=== PATIENT | male | born 1980 | race Caucasian/White ===

== ENCOUNTER 2017-03-11 15:07 | Emergency (ER) | payer OTHER ==
[2017-03-11 15:13] VITALS: BP 145/98; PULSE 79; TEMP 98.4; BMI 28.1
--- NOTE | 2017-03-11 15:43 | PDOC ---
History of Present Illness - General Chief Complaint: Injury Stated Complaint: LT TIGHT/KNEE PAIN Time Seen by Provider: 03/11/17 15:27 History Source: Patient Exam Limitations: No Limitations - History of Present Illness Initial Comments: 03/11/17 15:37 [employer], while at work, was lifting a chair by handle mechanism when he pushed with both feet on the ground causing an acute strain/sprain/tearing feeling to his left inner quadricep muscle. Has stabbing type pain to that muscle belly, with no numbness or tingling distal to that injury. 03/11/17 15:44 Occurred: reports: just prior to arrival Severity: reports: mild, moderate Pain Location: reports: lower extremity (leg / thigh) Method of Injury: Yes: other Modifying Factors: improves with: None Loss of Consciousness: no loss of consciousness Past History - Travel Traveled outside of the country in the last 30 days: No Close contact w/someone who was outside of country & ill: No - Past Medical History Allergies/Adverse Reactions: Allergies Allergy/AdvReac Type Severity Reaction Status Date / Time No Known Allergies Allergy Verified 03/11/17 15:09 Home Medications: Ambulatory Orders Citalopram Hydrobromide [Citalopram HBr] 20 mg PO DAILY 05/15/15 Esomeprazole Magnesium [Nexium 24Hr] 22.3 mg PO DAILY 06/25/16 Anemia: No Asthma: No Cancer: No Cardiac Disorders: No CVA: No COPD: No CHF: No Dementia: No Diabetes: No GI Disorders: Yes (REFLUX) Disorders: No HTN: Yes (SLIGHTLY ELEVATED- NO MEDS) Hypercholesterolemia: No Liver Disease: No Psychiatric Problems: Yes (ANXIETY.) Seizures: No Thyroid Disease: No - Surgical History Abdominal Surgery: No Appendectomy: No Cardiac Surgery: No Cholecystectomy: No Lung Surgery: No Neurologic Surgery: No Orthopedic Surgery: Yes (RIGHT SHOULDER ARTHROSCPY -2010) - Immunization History Immunization Up to Date: Yes - Psycho/Social/Smoking Cessation Hx Anxiety: No Suicidal Ideation: No Smoking Status: No Smoking History: Never smoked Have you smoked in the past 12 months: No Number of Cigarettes Smoked Daily: 10 If you are a former smoker, when did you quit?: 2000 Information on smoking cessation initiated: No Hx Alcohol Use: No Drug/Substance Use Hx: No Substance Use Type: Alcohol Hx Substance Use Treatment: No Trauma Specific PMHX - Complaint Specific PMHX Back Injury: No Neck Injury: No Review of Systems - Review of Systems Able to Perform ROS?: Yes Is the patient limited Peruvian proficient: Yes Constitutional: Yes: See HPI. No: Symptoms Reported HEENTM: No: Symptoms Reported Musculoskeletal: Yes: Symptoms Reported, See HPI, Muscle Pain, Muscle Weakness ( left quads) All Other Systems: Reviewed and Negative *Physical Exam - Vital Signs Last Vital Signs Temp Pulse Resp BP Pulse Ox 98.4 F 79 18 145/98 100 03/11/17 15:10 03/11/17 15:10 03/11/17 15:10 03/11/17 15:10 03/11/17 15:10 - Physical Exam General Appearance: Yes: Appropriately Dressed, Apparent Distress HEENT: positive: BECKY, TMs Normal, Pharynx Normal Neck: positive: Supple Respiratory/Chest: positive: Lungs Clear, Normal Breath Sounds Cardiovascular: positive: Regular Rhythm Musculoskeletal: positive: Normal Inspection, Decreased Range of Motion. negative: CVA Tenderness (L), Vertebral Tenderness Extremity: positive: Normal Capillary Refill, Normal Inspection, Normal Range of Motion (pain with flexion and quadriceps contraction primarily on the medial aspect of those muscle bellies. Able to contract and quadriceps tendon intact. Able to leg raise but reproduces pain to the medial aspect of [place] at muscle. Neurovascular intact distal to injury) Integumentary: positive: Normal Color, Dry, Warm. 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 Will treat with Aleksey wrap, rest and have follow-up with orthopedist for further evaluation and possible testing. Crutches provided, patient will use ibuprofen for pain relief *DC/Admit/Observation/Transfer Diagnosis at time of Disposition: Quadriceps muscle strain Qualifiers: Encounter type: initial encounter Laterality: left Qualified Code(s): S76.112A - Strain of left quadriceps muscle, fascia and tendon, initial encounter - Discharge Dispostion Disposition: HOME Condition at time of disposition: Stable Admit: No - Referrals Referrals: Ann-Marie Ruiz MD [Primary Care Provider] - Jonas Benavidez MD [Staff Physician] - - Patient Instructions Printed Discharge Instructions: DI for Muscle Strain Additional Instructions: Rest, ice to area on and off for 15 minutes 4-6 times a day Avoid heavy lifting or exercise until pain and swelling is resolved or until further directed Keep area highly elevated to reduce swelling Use splints/Aleksey wrap as directed Followup with orthopedist in one to 2 days if not improving, if significantly improved may wait one week for followup with orthopedist May use ibuprofen 2-200 mg tablets every 6 hours as needed for pain - Post Discharge Activity Work/School Note: Back to Work
== END 2017-03-11 15:47 | disposition home or self-care (01) ==
LOC: JER 15:07
DX: S76.112A Strain of left quadriceps muscle, fascia and tendon, initial encounter (principal); X50.0XXA Overexertion from strenuous movement or load, initial encounter; X50.9XXA Other and unspecified overexertion or strenuous movements or postures, initial encounter; Y93.89 Activity, other specified; Y92.29 Other specified public building as the place of occurrence of the external cause; Y99.0 Civilian activity done for income or pay; I10 Essential (primary) hypertension
CPT/HCPCS: 99281-25

== ENCOUNTER 2018-03-17 10:06 | Emergency (ER) | payer OTHER ==
[2018-03-17 10:19] VITALS: BP 153/105; PULSE 86; TEMP 98.3; BMI 28.1
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
== END 2018-03-17 11:46 | disposition home or self-care (01) ==
LOC: JERFT 10:06
DX: S53.402A Unspecified sprain of left elbow, initial encounter (principal); Y35.891A Legal intervention involving other specified means, law enforcement official injured, initial encounter; V43.52XA Car driver injured in collision with other type car in traffic accident, initial encounter; Y92.414 Local residential or business street as the place of occurrence of the external cause; Y93.89 Activity, other specified; Y99.0 Civilian activity done for income or pay
CPT/HCPCS: 73070-TC-LT-FY; 99281-25

== ENCOUNTER 2019-03-20 14:11 | Emergency (ER) | payer OTHER | END 2019-03-20 15:37 | disposition home or self-care (01) | LOC: JERFT 14:11 ==

== ENCOUNTER 2019-08-12 09:44 | Emergency (ER) | payer OTHER ==
[2019-08-12 09:50] VITALS: BP 142/98; PULSE 65; TEMP 98.4; BMI 28.1
[2019-08-12] MEDS ORDERED: IBUPROFEN 400 MG TABLET (FP) PO ONE ×2 (10:05→10:06)
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
== END 2019-08-12 10:21 | disposition home or self-care (01) ==
LOC: JERFT 09:44
DX: S16.1XXA Strain of muscle, fascia and tendon at neck level, initial encounter (principal); S39.012A Strain of muscle, fascia and tendon of lower back, initial encounter; S60.411A Abrasion of left index finger, initial encounter; V88.8XXA Person injured in other specified noncollision transport accidents involving motor vehicle, nontraffic, initial encounter; Y35.891A Legal intervention involving other specified means, law enforcement official injured, initial encounter; Y93.89 Activity, other specified; Y92.414 Local residential or business street as the place of occurrence of the external cause; Y99.0 Civilian activity done for income or pay
CPT/HCPCS: 99281-25

== ENCOUNTER 2019-11-03 10:24 | Emergency (ER) | payer BC, OTHER ==
[2019-11-03 10:39] VITALS: BP 127/97; PULSE 85; TEMP 98; BMI 28.1
--- NOTE | 2019-11-03 11:05 | PDOC ---
History of Present Illness - General Chief Complaint: Pain, Acute Stated Complaint: LT KNEE PAIN Time Seen by Provider: 11/03/19 10:53 History Source: Patient Exam Limitations: No Limitations - History of Present Illness Initial Comments: 11/03/19 11:00 Patient is a 39-year-old male with history of slightly high blood pressure, who does not take any medications, who presents to the ED with medial knee pain for the last 3 days. He states the pain has gotten progressively worse over the last 3 days. He denies any known injury. 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 He denies any known knee injuries in the past. He denies any numbness or tingling. He has not taken anything for his pain and states he would not like to take anything at this time. Past History - Past Medical History Allergies/Adverse Reactions: Allergies Allergy/AdvReac Type Severity Reaction Status Date / Time No Known Allergies Allergy Verified 11/03/19 10:40 Home Medications: Ambulatory Orders Citalopram Hydrobromide [Citalopram HBr] 40 mg PO DAILY 05/15/15 Omeprazole 20 mg PO 11/03/19 Anemia: No Asthma: No Cancer: No Cardiac Disorders: No CVA: No COPD: No CHF: No DVT: No Dementia: No Diabetes: No GI Disorders: Yes (REFLUX) Disorders: No HTN: Yes (SLIGHTLY ELEVATED- NO MEDS) Hypercholesterolemia: No Liver Disease: No Psychiatric Problems: Yes (ANXIETY.) Seizures: No Thyroid Disease: No - Surgical History Abdominal Surgery: No Appendectomy: No Cardiac Surgery: No Cholecystectomy: No Lung Surgery: No Neurologic Surgery: No Orthopedic Surgery: Yes (RIGHT SHOULDER ARTHROSCPY -2010) - Immunization History Immunization Up to Date: Yes - Psycho Social/Smoking Cessation Hx Smoking Status: No Smoking History: Unknown if ever smoked Have you smoked in the past 12 months: No Number of Cigarettes Smoked Daily: 10 If you are a former smoker, when did you quit?: 2000 Information on smoking cessation initiated: No Hx Alcohol Use: No Drug/Substance Use Hx: No Substance Use Type: Alcohol Hx Substance Use Treatment: No Review of Systems - Review of Systems Comments:: 11/03/19 11:01 - Review of Systems Able to Perform ROS?: Yes Constitutional: No: Fever, Chills, Loss of Appetite, Night Sweats, Weakness Respiratory: No: Cough, Shortness of Breath, Wheezing, Sputum Production Cardiac (ROS): No: Chest Pain, Chest Tightness, Palpitations, Irregular Heart Beat, Edema ABD/GI: No: Nausea, Vomiting, Abdominal Pain, Diarrhea : No Dysuria, No Hematuria, No Frequency, No Urgency Musculoskeletal: No: Muscle Pain, Back Pain, Muscle Weakness, Neck Pain; + L knee pain Integumentary: No: Lesions, Rash Neurological: No: Headache, Numbness, Tingling, Weakness, Speech Difficulties *Physical Exam - Vital Signs Last Vital Signs Temp Pulse Resp BP Pulse Ox 98.0 F 85 16 127/97 86 L 11/03/19 10:36 11/03/19 10:36 11/03/19 10:36 11/03/19 10:36 11/03/19 10:36 - Physical Exam 11/03/19 11:02 - Physical Exam General Appearance: Nourished, Appropriately Dressed, No Distress Neck: Supple, No Lymphadenopathy (R), No Lymphadenopathy (L), No Rigidity, No Decreased range of motion Respiratory/Chest: Lungs Clear, Normal Breath Sounds. No Respiratory Distress, No Accessory Muscle Use Cardiovascular: Regular Rhythm, Regular Rate, S1, S2 Musculoskeletal: Normal Inspection. There is left anterior and posterior medial joint line tenderness to palpation. There is a positive No sign. No Brit's sign appreciated. Calf soft and nontender. No palpable fullness to the posterior aspect of the knee. Sensation intact distally. EHL intact. There is moderate left knee swelling appreciated compared to right. Extremity: Normal Capillary Refill Integumentary: Normal Color, Dry. 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 Suspicion is a left medial meniscus injury. -Will get a left knee x-ray -Patient has declined analgesia at this time -Will reassess 11/03/19 11:34 The patient has been made aware that there is no acute pathology on his left knee x-ray. There is a sclerotic lesion on his distal femur that he has been made aware about. He has been made aware that he should follow-up with orthopedics as this should be followed up and further investigated. He also may require an MRI for further evaluation. He can take ibuprofen for any pain or swelling. He has been advised to ice his knee. He understands and agrees with this treatment and plan he is stable for discharge. Discharge - Discharge Information Problems reviewed: Yes Clinical Impression/Diagnosis: Left medial knee pain Condition: Stable Disposition: HOME - Follow up/Referral Referrals: Ann-Marie Ruiz MD [Primary Care Provider] - Jonas Benavidez MD [Staff Physician] - 1 week - Patient Discharge Instructions Patient Printed Discharge Instructions: DI for Knee Pain Additional Instructions: Ice your knee get plenty of rest. Take ibuprofen as needed for pain or swelling. You should follow-up with orthopedics within 1 week for repeat evaluation. Be sure to discuss the sclerotic bone in your distal femur with the orthopedist as this may require further evaluation. A copy of your radiology report and a disc of your x-rays have been given to you today. Be sure to bring this with you to the orthopedist. You may require an MRI for further evaluation. - Post Discharge Activity
== END 2019-11-03 11:45 | disposition home or self-care (01) ==
LOC: JERFT 10:24
DX: M25.562 Pain in left knee (principal); I10 Essential (primary) hypertension; K21.9 Gastro-esophageal reflux disease without esophagitis; F41.9 Anxiety disorder, unspecified
CPT/HCPCS: 73562-TC-LT-FY; 99282-25

== ENCOUNTER 2021-09-11 09:15 | Emergency (ER) | payer BC ==
[2021-09-11 09:23] VITALS: BP 145/92; PULSE 103; TEMP 98.2; BMI 27.5
[2021-09-11] MEDS ORDERED: DIPHTH,PERTUSS(ACELL),TET 0.5 ML DISP.SYRIN IM ONE ×2 (09:32→10:06)
== END 2021-09-11 10:14 | disposition home or self-care (01) ==
LOC: JERFT 09:15 → JER 09:15 → JERFT 10:14
PROC: 0HQGXZZ Repair Left Hand Skin, External Approach (ICD-10-PCS; principal; 2021-09-11)
PROC: 3E0234Z Introduction of Serum, Toxoid and Vaccine into Muscle, Percutaneous Approach (ICD-10-PCS; 2021-09-11)
DX: S61.211A Laceration without foreign body of left index finger without damage to nail, initial encounter (principal); W23.0XXA Caught, crushed, jammed, or pinched between moving objects, initial encounter; Y93.G1 Activity, food preparation and clean up
CPT/HCPCS: 90715; 99284-25

== ENCOUNTER 2021-09-17 15:00 | Emergency (ER) | payer BC, OTHER ==
[2021-09-17 15:12] VITALS: BP 151/79; PULSE 79; TEMP 99; BMI 28.7
[2021-09-17] MEDS ORDERED: IBUPROFEN 400 MG TABLET (FP) PO ONE ×2 (15:16→15:23)
== END 2021-09-17 15:58 | disposition home or self-care (01) ==
LOC: FER 15:00
DX: M25.512 Pain in left shoulder (principal)
CPT/HCPCS: 71045-TC-FY; 73030-TC-LT-FY; 99284-25